=== PATIENT | male | born 1970 | race Caucasian/White ===

== ENCOUNTER 2025-01-05 09:42 | Outpatient (AMB) | payer BC, SELFPAY ==
--- OUTSIDE RECORDS SUMMARY | 2025-01-05 10:25 | XMS_ITS | Clinical Summary ---
Author Organization [facility] Address [address] [place] [address] Care Team Providers Care Tree Doctor Name Role Phone Unavailable Primary Care Provider Unavailabl e Immunizations Name Administration Dates Next Due Covid-19 (Moderna 12+) 100mcg/0.5mL dosage 06/29 Social History Tobacco Use Types Packs/Day Years Used Date Smoking Tobacco: Never Assessed Sex and Gender Information Value Date Recorded Sex Assigned at Male 05/04/2020 11:47 AM EST Gender Identity Not on file Sexual Orientation Not on file Plan of Treatment Health Maintenance Due Date Last Done Comments Hepatitis B Vaccines (1 of 3 - 3-dose series) 1969 Hepatitis C Screening 1969 Depression Screening 1981 Preventative Health Evaluation 1987 DTap / Tdap / Td (1 - Tdap) 1988 Colon Cancer Screening (Colonoscopy) 2014 Shingrix-Zoster Vaccine (1 of 2) 2019 COVID-19 Vaccine (2 - 2023-2 5 season) 2024 06/29/2020 Influenza Vaccine (#1) 2025 Pneumococcal Vaccine Aged Out No long er eligible based on patient's age to complete this topic RSV Ped < 20 months Aged Out No longe r eligible based on patient's age to complete this topic
--- OUTSIDE RECORDS SUMMARY | 2025-01-05 10:25 | XMS_ITS | Encounter Summary ---
Author Organization [facility] Address [address] [place] [address] Care Team Providers Care Carpenter Foreman Name Role Phone Adrianna Andrade MD Primary Care Provider Encounter Details Date Type Department Care Team (Late st Contact Info) Description 06/06/2022 Scanned Document [facility] [address] [phone] Warner Jeffries MD [address] [place] [address] Social History Tobacco Use Types Packs/Day Years Used Date Smoking Tobacco: Never Smokeless Tobacco: Never Sex and Gender Information Value Date Recorded Sex Assigned at Not on file Legal Sex Male 6:50 PM EDT Gender Identity Not on file Sexual Orientation Not on file COVID-19 Exposure Response Date Recorded In the last 10 days, have yo u been in contact with someone who was confirmed or suspected to have Coronavirus/COVID-19? No / Unsure 05/31/2022 11:26 AM EST documented as of this encounter Plan of Treatment Not on file documented as of this encounter Procedures Procedure Name Priority Date/Time Associated Diagnosis Comments PATHOLOGY REPORT 06/06/2022 4:12 PM EST documented in this encounter Results * PATHOLOGY REPORT (06/06/2022 4:12 PM EST) us Warner Jeffries MD PATHOLOGY/CYTOLOGY ORDERABLES Final Result documented in this encounter Visit Diagnoses Not on filedocumented in this encounter Care Teams Carpenter Foreman Relationship Specialty Start Date End Date Adrianna Andrade MD [address] [place] [address] [place] [address] PCP - General 12/17/18 documented as of this encounter
--- NOTE | 2025-01-05 10:32 | MHC.PC.OV ---
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 Intake Note: New patient scheduled to establish care with pcp Sweatband Shaper Required: No Allergies No Known Allergies Allergy (Verified 01/05/25 10:37) Medication List - Last Reconciled 01/05/25 by Dwayne Sunshine MD lisinopril 40 mg PO DAILY Tobacco use date assessed: 01/05/25 Dental Screening Dental Screen Date: 01/05/25 Did you have a dental visit in the last 12 months?: Yes Did you have a dental problem in the last 6 months where you did not have access to dental care?: No Was dental information given to patient?: Patient has dentist HPI ART GALLERY DIRECTOR-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 ?? Prior PCP:Noam Shi Last office visit/CPE:? 1 yr Acute issue(s):? HTN Cough Rt Knee Pain. Hx of injury & surgery ?? PMHx:? HTN, Colon Polyps GI is in [place]; But had complications after [place] so Now wants GI in [place]. SurgHx:? R Knee Reconstruction after injury. FHx:? Mom: HTN, Dementia. 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 Nonsmoker, EtOH Varies Some months None. Sometimes 3-4 in a night. 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 1. Little interest or pleasure in doing things: not at all 2. Feeling down, depressed, or hopeless: not at all 3. Trouble falling or staying asleep, or sleeping too much: not at all 4. Feeling tired or having little energy: not at all 5. Poor appetite or overeating: not at all 6. Feeling bad about yourself - or that you are a failure or have let yourself or your family down: not at all 7. Trouble concentrating on things, such as reading the newspaper or watching television: not at all 8. Moving or speaking so slowly that other people could have noticed. Or the opposite - being so fidgety or restless that you have been moving around a lot more than usual: not at all 9. Thoughts that you would be better off or of hurting yourself in some way: not at all Total score: 0 Depression Screening Interpretation: Negative Depression Screening Done: Yes 60411 - PHQ-9 Billing: Yes Source: Developed by Drs. Arun Mike, Cristal Young, Joshua Jett and colleagues, with an educational dong from [employer]. Thrive Questionnaire Date Thrive assessed: 01/05/25 I am a: Patient What is your living situation today?: I have a steady place to live Within the past 12 months, did the food you bought not last and you didn't have the money to get more?: Never true Within the past 12 months, did you worry whether your food would run out before you got money to buy more?: Never true Do you have trouble paying for medicines?: No Do you have trouble getting transportation to medical appointments?: No Do you have trouble paying your heating and electricity bill?: No Do you have trouble taking care of your child, family member or friend?: No Do you have trouble with day-to-day activities such as bathing, preparing meals, shopping, managing finances, etc.?: No Are you currently unemployed and looking for a job?: No Are you interested in more education?: No Please select the resources that you would like help with: None Currently or been in a relationship where the following occur: No concerns reported THRIVE Score: 0 AUDIT C Alcohol Use Questionnaire (AUDIT-C) 1. How often do you have a drink containing alcohol?: 2-4 times a month 2. How many drinks containing alcohol do you have on a typical day when you are drinking?: 1 or 2 3. How often do you have six or more drinks on one occasion?: Less than monthly Total Score: 3 Score Reviewed/Action Taken: Yes SKYLA-7 AMB Questionnaire SKYLA-7 Date SKYLA - 7 assessed: 01/05/25 Feeling nervous, anxious, or on edge: 0 = Not at all Not being able to stop or control worryin = Not at all Worrying too much about different things: 0 = Not at all Trouble relaxin = Not at all Being so restless that it is hard to sit still: 0 = Not at all Becoming easily annoyed or irritable: 1 = Several days Feeling afraid as if something awful might happen: 0 = Not at all Total SKYLA-7 score (0-4 normal; 5-9 mild; 10-14 moderate; 15-21 severe): 1 Source: Developed by Drs. Arun Mike, Cristal Young, Joshua Jett and colleagues, with an educational dong from [employer]. SKYLA-7 Assessment Billing SKYLA-7 Assessment Tool: SKYLA-7 Assessment 23852 Review of Systems Const Denies chills, Denies fatigue, Denies fever(s), Denies headache(s) and Denies weakness ENT Denies dizziness and Denies headache(s) Card Denies chest pain, Denies lightheadedness, Denies dyspnea and Denies other (Palpitations) Resp Denies cough, Denies dyspnea, Denies wheezing and Denies other ( shortness of breath) Musc Denies numbness and Denies tingling Neuro Denies dizziness, Denies headache(s), Denies numbness, Denies tingling, Denies paresthesias and Denies weakness Psych Denies anxiety and Denies depression Endo Denies fatigue Aller/Immun Denies wheezing Physical exam (Primary Care) Vital Signs: Last Vital Signs Temp 98.3 F 01/05/25 10:41 Pulse 65 01/05/25 10:41 Resp 16 01/05/25 10:41 BP 140/90 H 01/05/25 10:43 Pulse Ox 98 01/05/25 10:41 Oxygen Delivery Method Room Air 01/05/25 10:41 BMI result Body Mass Index 32.3 Tobacco/Smoking Status: Tobacco use Status Tobacco use date assessed 01/05/25 01/05/25 10:47 Patient Tobacco Use Status Never used Tobacco 01/05/25 10:47 e-Cigarette/Vaping Use Never Used 01/05/25 10:47 PHQ-9: PHQ-9 Score PHQ-9: Total score 0 01/05/25 10:50 Depression Screening Interpretation: Negative Thrive Assessment: Date of Thrive Assessment Date Thrive assessed 01/05/25 01/05/25 10:47 Currently or been in a relationship where the following occur: No concerns reported Const General: no acute distress and well developed Nutritional Appearance: well nourished Orientation/consciousness: patient oriented x3 HENMT Head: Yes normocephalic and Yes atraumatic Eyes General: appearance normal, both eyes and all related structures Pupils: Equal, round and reactive pupils present EOM: EOMs intact bilaterally Resp Effort & Inspection: normal respiratory effort Auscultation: clear to auscultation bilaterally Cardio Rate: regular rate Rhythm: regular rhythm Heart sounds: S1 normal heart sound present, S2 normal heart sound present, no gallops, no murmurs and no rubs Neuro General: patient oriented x3 and gait normal Cranial nerves: Yes Equal, round and reactive pupils present Psych Affect: normal affect Coding Level of Care Code New Pt Level 3 (37716) Diagnoses High blood pressure I10 Cough R05.9 History of colon polyps Z86.0100 Screening for colon cancer Z12.11 Knee pain M25.569 Laboratory exam ordered as part of routine general medical examination Z00.00 Additional Codes SKYLA-7 Assessment Billing - SKYLA-7 Assessment Tool: SKYLA-7 Assessment 58762 ([id number]) PHQ-9 - 47001 - PHQ-9 Billing: Yes ([id number]) Assessment & Plan Assessment & Plan (1) High blood pressure: Code(s): I10 - Essential (primary) hypertension Category: Medical Plan: Blood pressure is elevated and patient also notes a cough which has been persistent over the same timeframe that he has been lisinopril. Will switch to losartan He has a blood pressure monitor at home and will call me if he has any problems. 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 Strong family history of colon cancer-father (4) Screening for colon cancer: Code(s): Z12.11 - Encounter for screening for malignant neoplasm of colon Category: Medical Plan: As above (5) Knee pain: Code(s): M25.569 - Pain in unspecified knee Category: Medical Plan: Chronic right knee pain History of knee injury and reconstruction. Will check an x-ray He will let me know if he wants to pursue follow-up with ortho (6) Laboratory exam ordered as part of routine general medical examination: Code(s): Z00.00 - Encounter for general adult medical examination without abnormal findings Category: Medical Plan: Check labs Orders: Orders Complete Blood Count Auto Diff Today Z00.00 - Encounter for general adult medical examination without abnormal findings Prostate Specific Antigen Scr Today Z12.5 - Encounter for screening for malignant neoplasm of prostate Microalbumin, Random (w Creat) Today I10 - Essential (primary) hypertension Lipid Panel Today Z00.00 - Encounter for general adult medical examination without abnormal findings TSH reflex Free T4 Today Z00.00 - Encounter for general adult medical examination without abnormal findings XR chest 2V Today R05.9 - Cough, unspecified Comprehensive [place]. Panel Fast Today Z00.00 - Encounter for general adult medical examination without abnormal findings UA CC w/rflx Micro + Cult Today Z00.00 - Encounter for general adult medical examination without abnormal findings XR knee RT 3V Today M25.569 - Pain in unspecified knee Medications: New losartan-hydrochlorothiazide 100-12.5 mg 1 tab PO DAILY 90 tabs 3RF 90 days
[2025-01-05 10:41] VITALS: BP 150/98; PULSE 65; RESP 16; TEMP 36.8; O2SAT 98; BMI 32.3
[2025-01-05 10:43] VITALS: BP 140/90
== END 2025-01-05 11:14 | disposition home or self-care (01) ==
LOC: HO.HMCFM 09:43
PROVIDERS: PCP Family Medicine; Visit Provider Family Medicine
DX: I10 Essential (primary) hypertension (principal); R05.9 Cough, unspecified; Z86.0100 Personal history of colon polyps, unspecified; Z12.11 Encounter for screening for malignant neoplasm of colon; M25.569 Pain in unspecified knee; Z00.00 Encounter for general adult medical examination without abnormal findings

== ENCOUNTER → 2025-01-05 09:42 | Outpatient (BNVA) | payer BC, SELFPAY | PROVIDERS: PCP Family Medicine; Visit Provider Family Medicine | DX: Z00.00 Encounter for general adult medical examination without abnormal findings (principal); I10 Essential (primary) hypertension; R05.9 Cough, unspecified; M25.561 Pain in right knee; Z86.0100 Personal history of colon polyps, unspecified | CPT/HCPCS: 96127 ==

== ENCOUNTER 2025-01-05 11:30 | Outpatient (REF) | payer BC, SELFPAY ==
--- OUTSIDE RECORDS SUMMARY | 2025-01-05 12:53 | XMS_ITS | Clinical Summary ---
Author Organization [facility] Address [address] [place] [address] Care Team Providers Care Curtain Feller Blindstitch Name Role Phone Unavailable Primary Care Provider Unavailabl e Social History Tobacco Use Types Packs/Day Years Used Date Smoking Tobacco: Never Assessed Sex and Gender Information Value Date Recorded Sex Assigned at Not on file Legal Sex Male 4:48 AM EST Gender Identity Not on file Sexual Orientation Not on file Plan of Treatment Health Maintenance Due Date Last Done Comments DTaP,Tdap,and Td Vaccines (1 - Tdap) 1988 Hepatitis B Vaccines (1 of 3 - 19+ 3-dose series) 1988 Pneumococcal Vaccine: 50+ Ye ars (1 of 1 - PCV) 2019 Zoster Vaccines (1 of 2) 2019 COVID-19 Vaccine (2 - 2023-2 5 season) 2024 06/29/2020 Influenza Vaccine (#1) 2025 HIB Vaccines Aged Out No longer eligi ble based on patient's age to complete this topic HPV Vaccines Aged Out No longer eligi ble based on patient's age to complete this topic Hepatitis A Vaccines Aged Out No long er eligible based on patient's age to complete this topic IPV Vaccines Aged Out No longer eligi ble based on patient's age to complete this topic MMR Vaccines Aged Out No longer eligi ble based on patient's age to complete this topic Meningococcal ACWY Vaccine Aged Out N o longer eligible based on patient's age to complete this topic Meningococcal B Vaccine Aged Out No l onger eligible based on patient's age to complete this topic RSV Immunization Patients Un isiah 20 months Aged Out No longer eligible b ased on patient's age to complete this topic Varicella Vaccines Aged Out No longer eligible based on patient's age to complete this topic
--- OUTSIDE RECORDS SUMMARY | 2025-01-05 12:53 | XMS_ITS ---
Author Name [facility] Organization Unknown History of Medication Use Medication Directions Dispensed Refills Start Date End Date Stat No known medications No known medications active Encounters Encounter Type Encounter Reason Primary Diagnosis Location Date Ambulatory Family history o f malignant neoplasm of digestive organs Leap 05/31/2022 Care Team Organization Name Specialty Phone Email Start Date End Da te [facility] 05/31/2022 06/05/[address] Primary Care 05/31/2022 [facility] NO PCP Primary Care 03/07/2021 02/10/2024
[2025-01-05 14:42] LABS: Appearance Urine Clear; Glucose Urine UA Negative (Negative); PH 6.5 (5.0-9.0); Specific Gravity - Urine 1.020 (1.005-1.025)
[2025-01-05 14:43] LABS: MANUAL DIFF FLAG NO
[2025-01-05 14:52] LABS: Hematocrit 44.9 % (42.0-52.0); Hemoglobin 15.1 g/dl (14.0-18.0); Imm Gran Abs Auto 0.02 X10*3/uL (0.00-0.03); Imm Gran Pct Auto 0.3 % (0.0-0.4); Lymphocytes Absolute Auto 1.8 X10*3/uL (1.2-4.9); Mean Corpuscular HGB Conc 33.6 g/dl (31.0-36.0); Mean Corpuscular Hemoglobin 29.8 pg (27.0-33.0); Mean Corpuscular Volume 88.7 fL (80.0-98.0); NRBC Abs Auto 0.000 X10*3/uL (0.0-0.012); NRBC Pct Auto 0.0 /100WBC (0.0-0.2); Platelet Count 176 X10*3/uL (160-400); Red Blood Count 5.06 X10*6/uL (4.60-5.80); White Blood Count 5.9 X10*3/uL (4.8-10.8)
[2025-01-05 15:14] LABS: Microalbum/Creatinine Ratio Ur 4.9 ug/mg cr (<30)
[2025-01-05 15:15] LABS: Alanine Aminotransferase 57 U/L (0-40); Albumin Level 4.5 g/dL (3.5-5.0); Alkaline Phosphatase 52 U/L (39-117); Anion Gap 11 (12-20); Aspartate Amino Transferase 40 U/L (5-37); Blood Urea Nitrogen 16 mg/dL (9-16); Calcium 9.1 mg/dL (8.4-10.2); Carbon Dioxide 29 mmol/L (22-29); Chloride 106 mmol/L (96-108); Cholesterol 203 mg/dL (<200); Estimated Glomerular Filt Rate > 60; HDL Cholesterol 33 mg/dL (>40); Potassium 4.3 mmol/L (3.3-5.1); Sodium 142 mmol/L (135-145); Total Protein 6.6 g/dL (6.5-8.0); Triglycerides 262 mg/dL (<150)
== END 2025-01-05 11:31 | disposition home or self-care (01) ==
LOC: HO.WFDLDS 11:30
PROVIDERS: Visit Provider Family Medicine
DX: Z00.00 Encounter for general adult medical examination without abnormal findings (principal); Z12.5 Encounter for screening for malignant neoplasm of prostate; R05.9 Cough, unspecified; M25.569 Pain in unspecified knee; I10 Essential (primary) hypertension
CPT/HCPCS: 36415; 80053; 80061; 81003; 82043; 82570; 84153; 84443; 85025

== ENCOUNTER 2025-04-03 09:18 | Outpatient (REF) | payer BC, SELFPAY ==
--- NOTE | ~2025-04-03 | XR_ITS ---
EXAMINATION: XR CHEST 2 VIEWS HISTORY: R05.9 - Cough, unspecified COMPARISON: There are no prior studies available for comparison. FINDINGS: PA and lateral views of the chest are submitted. The lungs are expanded and clear. There is no pleural effusion, pneumothorax, or pulmonary vascular congestion. The heart is normal in size. There is mild degenerative disc disease of the spine. XR/XR chest 2V IMPRESSION: Clear lungs. Electronically signed by: Arun Lam MD 04/06/2025 08:06 AM EDT
--- NOTE | ~2025-04-03 | XR_ITS ---
EXAMINATION: XR KNEE 1-2 VIEWS RIGHT HISTORY: M25.569 - Pain in unspecified knee COMPARISON: There are no prior studies available for comparison. FINDINGS: AP and lateral views of the right knee are submitted. Osseous mineralization is normal. The patient is status post ACL repair with multiple screws noted in the distal femur and proximal tibia. There is no fracture or dislocation. There is severe tricompartmental osteoarthritis with joint space narrowing and osteophyte formation. Multiple calcified loose bodies are noted throughout the joint space. XR/XR knee RT 2V IMPRESSION: Severe tricompartmental osteoarthritis. Multiple calcified loose bodies. Electronically signed by: Arun Lam MD 04/06/2025 08:07 AM EDT
--- OUTSIDE RECORDS SUMMARY | 2025-04-03 09:24 | XMS_ITS | Encounter Summary ---
Author Organization [facility] Address [address] [place] [address] Care Team Providers Care Java Groovy Developer Name Role Phone Adrianna Andrade MD Primary Care Provider Encounter Details Date Type Department Care Team (Late st Contact Info) Description 06/06/2022 Scanned Document [facility] [address] [phone] Warner Jeffries MD [address] [place] [address] Social History Tobacco Use Types Packs/Day Years [...] on filedocumented in this encounter Care Teams Java Groovy Developer Relationship Specialty Start Date End Date Adrianna Adnrade MD [address] [place] [address] [place] [address] PCP - General 12/17/18 documented as of this encounter
--- OUTSIDE RECORDS SUMMARY | 2025-04-03 09:24 | XMS_ITS | Clinical Summary ---
Author Organization [facility] Address [address] [place] [address] Care Team Providers Care Formstone Fitter Name Role Phone Unavailable Primary Care Provider [...] 2019 Zoster Vaccines (1 of 2) 2019 Depression Screening 06/24/2024 COVID-19 Vaccine (2 - 2024-2 6 season) 2025 06/29/2020 Influenza Vaccine (#1) 2025 RSV Immunization Adult Patie nts (1 - 1-dose 75+ series) 2044 HIB Vaccines Aged Out No longer eligi [...]
--- OUTSIDE RECORDS SUMMARY | 2025-04-03 09:24 | XMS_ITS | Encounter Summary ---
Author Organization [facility] Address [address] [place] [address] Care Team Providers Care Public Relations Account Executive Name Role Phone Adrianna Andrade MD Primary Care Provider Encounter Details Date Type Department Care Team (Late st Contact Info) Description 12/18/2018 Scanned Document [id number] [id number] [address] [place] [address] Renaldo Kam MD Social History Tobacco Use Types Packs/Day Years Used Date Smoking Tobacco: Never Assessed Sex and Gender Information Value Date Recorded Sex Assigned at Not on file Legal Sex Male 6:50 PM EDT Gender Identity Not on file Sexual Orientation Not on file documented as of this encounter Plan of Treatment Not on file documented as of this encounter Visit Diagnoses Not on filedocumented in this encounter Care Teams Public Relations Account Executive Relationship Specialty Start Date End Date Adrianna Andrade MD [address] [place] [address] J[place]IKA Coleman [address] PCP - General 12/17/18 documented as of this encounter
--- OUTSIDE RECORDS SUMMARY | 2025-04-03 09:24 | XMS_ITS | Encounter Summary ---
Author Organization [facility] Address [address] [place] [address] Care Team Providers Care Director Employment Name Role Phone Adrianna Andrade MD Primary Care Provider Encounter Details Date Type Department Care Team (Late st Contact Info) Description 05/25/2022 Telephone [facility], [address] [place] [phone] Warner Jeffries MD [address] [place] [address] Social History Tobacco Use Types Packs/Day Years [...] was confirmed or suspected to have Coronavirus/COVID-19? Unable to assess 05/09/2022 6:42 PM EST documented as of this encounter Miscellaneous Notes * Telephone Encounter - Charline Friedman MA - 05/28/2022 1:17 PM EST [facility] his procedure, they do not have a record of a colonoscopy. I also reached out to his primary care and received the same information. * Telephone Encounter - Charline Friedman MA - 05/28/2022 9:42 AM EST Records requested * Telephone Encounter - Soledad Sherwin - 05/25/2022 2:31 PM EST Good afternoon, The patients authorization is currently pending with the insurance but they are requesting the patient past procedure and pathology report, is it possible to obtain the patients past report? Thank you so much! documented in this encounter Plan of Treatment Not on file documented as of this encounter Visit Diagnoses Not on filedocumented in this encounter Care Teams Director Employment Relationship Specialty Start Date End Date Adrianna Andrade MD [address] [place] [address] [place] Coleman [address] PCP - General 12/17/18 documented as of this encounter
--- OUTSIDE RECORDS SUMMARY | 2025-04-03 09:24 | XMS_ITS | Encounter Summary ---
Author Organization [facility] Address [address] [place] [address] Care Team Providers Care Pet Care Associate Name Role Phone Adrianna Andrade MD Primary Care Provider Encounter Details Date Type Department Care Team (Late st Contact Info) Description 06/13/2022 Scanned Document [facility] [address] [facility] [place] [address] [place] [address] Warner Jeffries MD [address] [place] [address] Social History Tobacco Use Types Packs/Day Years [...] on filedocumented in this encounter Care Teams Pet Care Associate Relationship Specialty Start Date End Date Adrianna Andrade MD [address] [place] [address] [place]A Coleman [id number] PCP - General 12/17/18 documented as of this encounter
--- OUTSIDE RECORDS SUMMARY | 2025-04-03 09:24 | XMS_ITS | Clinical Summary ---
Author Organization [facility] Address [address] [place] [address] Care Team Providers Care Machine I Engraver Name Role Phone Unavailable Primary Care Provider [...] of 2) 2019 COVID-19 Vaccine (2 - 2024-2 6 season) 2025 06/29/2020 Influenza Vaccine (#1) 2025 Pneumococcal Vaccine Aged Out No long er eligible based on patient's age to complete this topic RSV Ped < 20 months Aged Out No longe r eligible based on patient's age to complete this topic
--- OUTSIDE RECORDS SUMMARY | 2025-04-03 09:24 | XMS_ITS | Clinical Summary ---
Author Organization [facility] Address [address] [place] [address] Care Team Providers Care Superannuation Clerk Name Role Phone Adrianna Andrade MD Primary Care Provider Allergies No known active allergies Medications Sodium Sulfate-Mag Sulfate-KCl (SUTAB) 0525-848-653 MG TabIndications :Personal history of colonic polyps,Family history of colon cancer in father,Family history of colonic polyps Take as directed for Colonoscopy/GI Procedure. See administration instructions. 24 tablet 2 Active Active Problems No known active problems Family History Medical History Relation Name Comments Colon cancer Father Breast cancer Sister Relation Name Status Comments Father Sister Social History Tobacco Use Types Packs/Day Years Used Date Smoking Tobacco: Never Smokeless Tobacco: Never Tobacco Cessation:Counseling Given: Not Answered Sex and Gender Information Value Date Recorded Sex Assigned at Not on file Legal Sex Male 6:50 PM EDT Gender Identity Not on file Sexual Orientation Not on file Last Filed Vital Signs Vital Sign Reading Time Taken Comments Blood Pressure - - Pulse - - Temperature - - Respiratory Rate - - Oxygen Saturation - - Inhaled Oxygen Concentration - - Weight 99.8 kg (220 lb) 05/31/2022 11:27 AM EST Height 172.7 cm (5' 8 ) 05/31/2022 11:27 AM EST Body Mass Index 33.45 05/31/2022 11:27 AM EST Plan of Treatment Health Maintenance Due Date Last Done Comments Hepatitis C Virus Screening 1969 HIV Screening 1982 DTaP/Tdap/Td Vaccines (1 - Tdap) 1988 Hepatitis B Vaccines (1 of 3 - 19+ 3-dose series) 1988 Pneumococcal Vaccines 50+ (1 of 1 - PCV) 2019 Zoster (Shingles) Vaccine (1 of 2) 2019 Influenza Vaccine 01/22/2025 COVID-19 Vaccine (3 - 2024- season) 02/22/202508/2020, 06/29/2020 Colonoscopy 06/05/2025 06/05/2022 (Prev iously Completed) Insurance [facility] Care Teams Superannuation Clerk Relationship Specialty Start Date End Date Adrianna Andrade MD [address] [place] [address] [place] Coleman [id number] PCP - General 12/17/18
== END 2025-04-03 09:19 | disposition home or self-care (01) ==
LOC: HO.HMGCX 09:18
PROVIDERS: PCP Family Medicine; Visit Provider Family Medicine
DX: R05.9 Cough, unspecified (principal); M25.561 Pain in right knee
CPT/HCPCS: 71046; 73560

== ENCOUNTER → 2025-04-03 09:24 | Outpatient (BNV) | payer BC, SELFPAY | PROVIDERS: PCP Family Medicine; Visit Provider Radiology Diagnostic Radiology | DX: R05.9 Cough, unspecified (principal); M17.11 Unilateral primary osteoarthritis, right knee | CPT/HCPCS: 71046; 73560 ==

== ENCOUNTER 2025-04-06 11:48 | Outpatient (AMB) | payer BC, SELFPAY ==
--- NOTE | 2025-04-06 11:53 | MHC.PC.OV ---
Vital Signs 04/06/25 11:58 Height 5 ft 8 in Weight 212 lb 6 oz BMI 32.3 BP 128/82 Blood Pressure Location Rt brachial Position Sitting Respiration 16 Pulse 83 Pulse Source Pulse Oximeter Temp 98 F Temp Source Temporal Artery Scan Pulse Oximetry (%) 96 Oxygen Delivery Method Room Air Intake Visit Reasons: Physical Intake Note: Iggy presents in the office today for his annual physical. Allergies No Known Allergies Allergy (Verified 04/06/25 11:54) Medication List - Last Reconciled 04/06/25 by Dwayne Sunshine MD losartan-hydrochlorothiazide 100-12.5 mg 1 tab PO DAILY 90 days Tobacco use date assessed: 04/06/25 Dental Screening Dental Screen Date: 04/06/25 Did you have a dental visit in the last 12 months?: Yes Did you have a dental problem in the last 6 months where you did not have access to dental care?: No Was dental information given to patient?: Patient has dentist HPI Physical HPI Details 54 y/o male presents for a CPE with f/u labs and health maint. Labs drawn 01/05/25. Reviewed labs with pt. Elevated liver enzymes - AST 40, ALT 57. Triglycerides 262. TC 203. LDL 118. HDL low at 33. PSA 3.27. BP today 128/82, 83p. He is on losartan-HCTZ 100-12.5mg daily. Pt reports cough has improved. Recent chest x-ray was clear. Reports ongoing knee pain. Knee x-ray 04/03/25 showed severe tricompartmental osteoarthritis. Multiple calcified loose bodies. Reports some chest pain on exertion. [facility] Medical History (Updated 04/06/25 @ 12:48 by Dwayne Sunshine MD) Arthritis High blood pressure Right knee injury Family History (Updated 04/06/25 @ 11:55 by Margie Trejo CMA) Mother High blood pressure Father Diabetes Colon cancer Sister High blood pressure Breast cancer Social History (Updated 04/06/25 @ 11:55 by Margie Trejo CMA) Housing: House Alcohol intake: current Patient Tobacco Use Status: Never used Tobacco e-Cigarette/Vaping Use: Never Used Second Hand Smoke Exposure: No Use of substances other than those prescribed or required for medical reasons: No service: No Current occupational status: employed 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 1. Little interest or pleasure in doing things: not at all 2. Feeling down, depressed, or hopeless: not at all 3. Trouble falling or staying asleep, or sleeping too much: not at all 4. Feeling tired or having little energy: not at all 5. Poor appetite or overeating: not at all 6. Feeling bad about yourself - or that you are a failure or have let yourself or your family down: not at all 7. Trouble concentrating on things, such as reading the newspaper or watching television: not at all 8. Moving or speaking so slowly that other people could have noticed. Or the opposite - being so fidgety or restless that you have been moving around a lot more than usual: not at all 9. Thoughts that you would be better off or of hurting yourself in some way: not at all Total score: 0 Depression Screening Interpretation: Negative Depression Screening Done: Yes 38561 - PHQ-9 Billing: Yes Source: Developed by Drs. Arun Mike, Cristal Young, Joshua Jett and colleagues, with an educational dong from [employer]. Thrive Questionnaire Date Thrive assessed: 04/06/25 I am a: Patient What is your living situation today?: I have a steady place to live Within the past 12 months, did the food you bought not last and you didn't have the money to get more?: Never true Within the past 12 months, did you worry whether your food would run out before you got money to buy more?: Never true Do you have trouble paying for medicines?: No Do you have trouble getting transportation to medical appointments?: No Do you have trouble paying your heating and electricity bill?: No Do you have trouble taking care of your child, family member or friend?: No Do you have trouble with day-to-day activities such as bathing, preparing meals, shopping, managing finances, etc.?: No Are you currently unemployed and looking for a job?: No Are you interested in more education?: No Please select the resources that you would like help with: None Currently or been in a relationship where the following occur: No concerns reported THRIVE Score: 0 AUDIT C Alcohol Use Questionnaire (AUDIT-C) 1. How often do you have a drink containing alcohol?: 2-4 times a month 2. How many drinks containing alcohol do you have on a typical day when you are drinking?: 3 or 4 3. How often do you have six or more drinks on one occasion?: Never Total Score: 3 SKYLA-7 AMB Questionnaire SKYLA-7 Date SKYLA - 7 assessed: 04/06/25 Feeling nervous, anxious, or on edge: 0 = Not at all Not being able to stop or control worryin = Not at all Worrying too much about different things: 0 = Not at all Trouble relaxin = Not at all Being so restless that it is hard to sit still: 0 = Not at all Becoming easily annoyed or irritable: 0 = Not at all Feeling afraid as if something awful might happen: 0 = Not at all Total SKYLA-7 score (0-4 normal; 5-9 mild; 10-14 moderate; 15-21 severe): 0 Source: Developed by Drs. Arun Mike, Cristal Young, Joshua Jett and colleagues, with an educational dong from [employer]. SKYLA-7 Assessment Billing SKYLA-7 Assessment Tool: SKYLA-7 Assessment 12318 Review of Systems Const Denies chills, Denies fatigue, Denies fever(s), Denies headache(s) and Denies weakness Eyes Denies change in vision ENT Denies dizziness, Denies headache(s), Denies hearing loss, Denies nasal congestion, Denies sinus pain, Denies sinus pressure and Denies sore throat Card Denies chest pain, Denies lightheadedness, Denies dyspnea and Denies other (palpitations) Resp Denies cough, Denies dyspnea and Denies wheezing GI Denies abdominal pain, Denies melena, Denies hematochezia, Denies change in bowel habits, Denies dyspepsia and Denies nausea Denies hematuria and Denies dysuria Musc Denies abnormal gait, Denies myalgias, Denies arthralgias, Denies numbness and Denies tingling Skin/Breast Denies rash, Denies unusual bruising and Denies wounds Neuro Denies abnormal gait, Denies dizziness, Denies headache(s), Denies memory loss, Denies numbness, Denies Sensory deficit (Neuro), Denies tingling and Denies weakness Psych Denies anxiety, Denies depression and Denies memory loss Endo Denies cold intolerance, Denies fatigue, Denies heat intolerance, Denies polydipsia and Denies polyuria Aakash/Lymph Denies easy bleeding and Denies easy bruising Aller/Immun Denies wheezing Physical exam (Primary Care) Vital Signs: Last Vital Signs Temp 98 F 04/06/25 11:58 Pulse 83 04/06/25 11:58 Resp 16 04/06/25 11:58 BP 128/82 04/06/25 11:58 Pulse Ox 96 04/06/25 11:58 Oxygen Delivery Method Room Air 04/06/25 11:58 BMI result Body Mass Index 32.3 Tobacco/Smoking Status: Tobacco use Status Tobacco use date assessed 04/06/25 04/06/25 12:00 Patient Tobacco Use Status Never used Tobacco 04/06/25 12:00 e-Cigarette/Vaping Use Never Used 04/06/25 12:00 PHQ-9: PHQ-9 Score PHQ-9: Total score 0 04/06/25 12:18 Depression Screening Interpretation: Negative Thrive Assessment: Date of Thrive Assessment Date Thrive assessed 04/06/25 04/06/25 12:00 Currently or been in a relationship where the following occur: No concerns reported Const General: no acute distress, well developed, alert and awake Nutritional Appearance: well nourished Orientation/consciousness: patient oriented x3 HENMT Head: Yes normocephalic and Yes atraumatic Ears: hearing grossly normal bilaterally and TM's normal bilaterally General nose exam: Normal external nose present and Normal nares present Mouth: Normal oral and palatal mucosa present and moist mucous membranes Teeth and gingiva: dentition normal Throat: Yes posterior oropharynx normal Eyes General: appearance normal, both eyes and all related structures Pupils: Equal, round and reactive pupils present and Pupil accommodation reflex normal EOM: EOMs intact bilaterally Neck Neck: Yes normal visual inspection, Yes no lymphadenopathy and Yes trachea midline Thyroid: Thyroid normal Carotids: no bruits Lymphatic: no lymphadenopathy noted Chest Chest palpation & inspection: normal inspection of the chest Resp Effort & Inspection: normal respiratory effort Auscultation: clear to auscultation bilaterally Cardio Rate: regular rate Rhythm: regular rhythm Heart sounds: S1 normal heart sound present, S2 normal heart sound present, no gallops, no murmurs and no rubs Bruits: no abdominal aortic bruits and no carotid bruits GI Palpation (GI): No Abdominal aortic bruit present, Soft to palpation, nontender, No hepatosplenomegaly present and No Rebound tenderness present Auscultation: normal bowel sounds General: Yes no CVA tenderness Back/Spine/Pelvis Back: no CVA tenderness Cervical Spine: cervical ROM normal and No Cervical spine tenderness Thoracic/Lumbar Spine: thoraco-lumbar ROM normal, No pain with thoraco-lumbar ROM, No thoracic spinal tenderness and No lumbar spinal tenderness Skin Lesions: no lesions Rashes: no rashes Trauma: no lacerations or abrasions Wounds: no wounds Nails: normal Neuro General: patient oriented x3 Cranial nerves: Yes Equal, round and reactive pupils present Cognition (Neuro): normal cognition Gait exam (Neuro): Normal gait present Motor exam (neuro): 5/5 motor strength present throughout Sensory Exam: No Sensory deficit (Neuro) Deep tendon reflexes (DTR's): Right patellar reflex intensity grade: 2+ and Left patellar reflex intensity grade: 2+ Extrem General: Yes normal to inspection and No edema Psych Appearance: grossly normal Affect: normal affect Attitude: cooperative Thought process: Normal thought process present Coding Level of Care Code Est Pt Level 3 (20132) Est Pt Prev Care 40-64y(03756) Diagnoses Adult general medical exam Z00.00 Elevated liver enzymes R74.8 Knee pain M25.569 Cough R05.9 High blood pressure I10 Screening for colon cancer Z12.11 Screening for prostate cancer Z12.5 Chest pain R07.9 History of colon polyps Z86.0100 Hyperlipidemia E78.5 Tinnitus H93.19 Change in hearing H91.90 Additional Codes SKYLA-7 Assessment Billing - SKYLA-7 Assessment Tool: SKYLA-7 Assessment 17822 ([id number]) PHQ-9 - 24764 - PHQ-9 Billing: Yes ([id number]) Assessment & Plan Assessment & Plan (1) Adult general medical exam: Code(s): Z00.00 - Encounter for general adult medical examination without abnormal findings Category: Medical Plan: 54-year-old male presents for complete physical exam Exam within normal limits Encouraged healthy diet with active lifestyle and plenty of exercise (2) Elevated liver enzymes: Code(s): R74.8 - Abnormal levels of other serum enzymes Category: Medical Plan: Mildly elevated liver enzymes Patient does note that he sometimes drinks and also gets dehydrated Encouraged moderation in alcohol use and increased hydration. 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 Goal is less than 140/90 Continue current medication (6) Screening for colon cancer: Code(s): Z12.11 - Encounter for screening for malignant neoplasm of colon Category: Medical Plan: History of colon polyps and family history of colon cancer (father) Referred to Gastroenterology for follow-up (7) Screening for prostate cancer: Code(s): Z12.5 - Encounter for screening for malignant neoplasm of prostate Category: Medical Plan: PSA was within normal range Will continue annual screening (8) Chest pain: Code(s): R07.9 - Chest pain, unspecified Category: Medical Plan: Patient notes breech chest pain with exertion on occasion. Does not last long EKG: Normal sinus rhythm, normal axis, no hypertrophy, no ST-T-wave changes. Controlling his blood pressure Working on cholesterol Referring him for stress test and will follow-up on this (9) History of colon polyps: Code(s): Z86.0100 - Personal history of colon polyps, unspecified Category: Medical Plan: As above (10) Hyperlipidemia: Code(s): E78.5 - Hyperlipidemia, unspecified Category: Medical Plan: Encouraged lifestyle changes Will recheck lipids in 3 months We discussed that if lipids are still high we made each use a medication. (11) Tinnitus: Code(s): H93.19 - Tinnitus, unspecified ear Category: Medical Plan: Tinnitus and hearing changes/loss Will refer to audiology (12) Change in hearing: Code(s): H91.90 - Unspecified hearing loss, unspecified ear Category: Medical Plan: As above Orders: Orders CA stress test Today E78.5 - Hyperlipidemia, unspecified, I10 - Essential (primary) hypertension, R07.9 - Chest pain, unspecified AMB EKG-In Office Today R07.9 - Chest pain, unspecified Referrals Orthopedics Referral M25.569 - Pain in unspecified knee Gastroenterology Referral Z86.0100 - Personal history of colon polyps, unspecified Audiology Referral H91.90 - Unspecified hearing loss, unspecified ear
[2025-04-06 11:58] VITALS: BP 128/82; PULSE 83; RESP 16; TEMP 36.6; O2SAT 96; BMI 32.3
--- OUTSIDE RECORDS SUMMARY | 2025-04-06 14:30 | XMS_ITS | Clinical Summary ---
Author Organization [facility] Address [address] [place] [address] Care Team Providers Care Wildlife Science Professor Name Role Phone Adrianna Andrade MD Primary Care Provider Allergies No known active allergies Medications Sodium Sulfate-Mag Sulfate-KCl (SUTAB) 9465-110-596 MG TabIndications :Personal history of colonic polyps,Family [...] Colonoscopy 06/05/2025 06/05/2022 (Prev iously Completed) Insurance [facility] Care Teams Wildlife Science Professor Relationship Specialty Start Date End Date Adrianna Andrade MD [address] [place] [address] JESSIKA Coleman [id number] PCP - General 12/17/18
--- OUTSIDE RECORDS SUMMARY | 2025-04-06 14:30 | XMS_ITS | Encounter Summary ---
Author Organization [facility] Address [address] [place] [address] Care Team Providers Care Reel Assembler Name Role Phone Adrianna Andrade MD Primary Care Provider Encounter Details Date Type Department Care Team (Late st Contact Info) Description 05/25/2022 Telephone [facility], [address] [place] [phone] Warner Jeffries MD [address] [place] [address] Social History Tobacco Use Types Packs/Day Years [...] 1:17 PM EST Re[facility], where Iggy thought he had his procedure, [...] on filedocumented in this encounter Care Teams Reel Assembler Relationship Specialty Start Date End Date Adrianna Andrade MD [address] [place] [address] JESSIKA Coleman [id number] PCP - General 12/17/18 documented as of this encounter
--- OUTSIDE RECORDS SUMMARY | 2025-04-06 14:30 | XMS_ITS | Encounter Summary ---
Author Organization [facility] Address [address] [place] [address] Care Team Providers Care Distributor Cleaner Name Role Phone Adrianna Andrade MD Primary Care Provider Encounter Details Date Type Department Care Team (Late st Contact Info) Description 06/06/2022 Scanned Document [facility] [address] [place] [phone] Warner Jeffries MD [address] [place] [address] Social History Tobacco Use Types Packs/Day Years [...] on filedocumented in this encounter Care Teams Distributor Cleaner Relationship Specialty Start Date End Date Adrianna Andrade MD [address] [place] [address] [place] [address] PCP - General 12/17/18 documented as of this encounter
--- OUTSIDE RECORDS SUMMARY | 2025-04-06 14:31 | XMS_ITS | Clinical Summary ---
Author Organization [facility] Address [address] [place] [address] Care Team Providers Care Billing Department Supervisor Name Role Phone Unavailable Primary Care Provider [...]
--- OUTSIDE RECORDS SUMMARY | 2025-04-06 14:31 | XMS_ITS | Encounter Summary ---
Author Organization [facility] Address [address] [place] [address] Care Team Providers Care Drilling Machine Operator Name Role Phone Adrianna Andrade MD Primary Care Provider Encounter Details Date Type Department Care Team (Late st Contact Info) Description 06/13/2022 Scanned Document [facility] [address] [facility] [place] [address] Warner Jeffries MD [address] [place] [address] Social History Tobacco Use Types Packs/Day Years [...] on filedocumented in this encounter Care Teams Drilling Machine Operator Relationship Specialty Start Date End Date Adrianna Andrade MD [address] [place] [address] JESSIKA Coleman [id number] PCP - General 12/17/18 documented as of this encounter
--- OUTSIDE RECORDS SUMMARY | 2025-04-06 14:31 | XMS_ITS | Clinical Summary ---
Author Organization [facility] Address [address] [place] [address] Care Team Providers Care Blood Tester Fowl Name Role Phone Unavailable Primary Care Provider [...]
--- OUTSIDE RECORDS SUMMARY | 2025-04-06 14:31 | XMS_ITS | Encounter Summary ---
Author Organization [facility] Address [address] [place] [address] Care Team Providers Care Top Printing Press Operator Name Role Phone Adrianna Andrade MD Primary Care Provider Encounter Details Date Type Department Care Team (Late st Contact Info) Description 12/18/2018 Scanned Document [facility] [id number] [address] [place] [address] Renaldo Kam MD Social History [...] on filedocumented in this encounter Care Teams Top Printing Press Operator Relationship Specialty Start Date End Date Adrianna Andrade MD [address] [place] [address] JESSIKA Coleman [id number] PCP - General 12/17/18 documented as of this encounter
== END 2025-04-06 13:00 | disposition home or self-care (01) ==
LOC: HO.HMCFM 11:49
PROVIDERS: PCP Family Medicine; Visit Provider Family Medicine
DX: Z00.00 Encounter for general adult medical examination without abnormal findings (principal); R07.9 Chest pain, unspecified; R74.8 Abnormal levels of other serum enzymes; M25.561 Pain in right knee; R05.9 Cough, unspecified; I10 Essential (primary) hypertension; Z12.11 Encounter for screening for malignant neoplasm of colon; Z12.5 Encounter for screening for malignant neoplasm of prostate; Z86.0100 Personal history of colon polyps, unspecified; E78.5 Hyperlipidemia, unspecified; H93.19 Tinnitus, unspecified ear; H91.90 Unspecified hearing loss, unspecified ear

== ENCOUNTER → 2025-04-06 11:48 | Outpatient (BNVA) | payer BC, SELFPAY | PROVIDERS: PCP Family Medicine; Visit Provider Family Medicine | DX: Z00.00 Encounter for general adult medical examination without abnormal findings (principal); I10 Essential (primary) hypertension; R74.8 Abnormal levels of other serum enzymes; E78.5 Hyperlipidemia, unspecified; M25.569 Pain in unspecified knee; R05.9 Cough, unspecified; R07.9 Chest pain, unspecified; H93.19 Tinnitus, unspecified ear; H91.90 Unspecified hearing loss, unspecified ear; Z86.0100 Personal history of colon polyps, unspecified | CPT/HCPCS: 93005; 96127 ==

== ENCOUNTER → 2025-05-13 07:53 | Outpatient (REF) | payer BC, SELFPAY ==
--- NOTE | 2025-05-13 07:54 | CA_ITS ---
Acquisition Time: 2025-05-13 08:14:43 Total Exercise Time: 00:09:49 Test Indications: CP Medications: LOSARTAN/HCTZ Protocol: MONICA Max HR: 142 BPM 86% of Pred: 165 BPM Max BP: 194/90 mmHG Max Work Load: 11.4 METS Exercise stress test with exercise 9 mins 49 secs of Monica Protocol, achieving 86% MPHR, with reports of SOB, no chest pain, without any arrythmias, with normotensive response to exercise- baseline hypertensive. Without any EKG changes meeting criteria for ischemia. In recovery, breathing improved and pt feeling back to baseline. Test reviewed with Dr. Montez. Referred By: Dwyane Sunshine Electronically Signed By: Ozzy Quispe
--- OUTSIDE RECORDS SUMMARY | 2025-05-13 08:06 | XMS_ITS | Encounter Summary ---
Author Organization [facility] Address [address] [place] [address] Care Team Providers Care Business Liaison Officer Name Role Phone Adrianna Andrade MD Primary Care Provider Encounter Details Date Type Department Care Team (Late st Contact Info) Description 06/13/2022 Scanned Document [facility] [address] [facility] [place] [address] Warner Jeffries MD [address] [place] [address] Social History Tobacco Use Types Packs/Day Years [...] on filedocumented in this encounter Care Teams Business Liaison Officer Relationship Specialty Start Date End Date Adrianna Andrade MD [address] [place] [address] JESSIKA Coleman [phone] PCP - General 12/17/18 documented as of this encounter
--- OUTSIDE RECORDS SUMMARY | 2025-05-13 08:06 | XMS_ITS | Clinical Summary ---
Author Organization [facility] Address [address] [place] [address] Care Team Providers Care Luggage Repairer Name Role Phone Unavailable Primary Care Provider [...]
--- OUTSIDE RECORDS SUMMARY | 2025-05-13 08:06 | XMS_ITS | Encounter Summary ---
Author Organization [facility] Address [address] [place] [address] Care Team Providers Care Industrial Technology Education Teacher Name Role Phone Adrianna Andrade MD Primary Care Provider Encounter Details Date Type Department Care Team (Late st Contact Info) Description 12/18/2018 Scanned Document [id number] [id number] [address] [place] [address] Renaldo Kam MD Social History [...] on filedocumented in this encounter Care Teams Industrial Technology Education Teacher Relationship Specialty Start Date End Date Adrianna Andrade MD [address] [place] [address] JESSIKA Coleman [phone] PCP - General 12/17/18 documented as of this encounter
--- OUTSIDE RECORDS SUMMARY | 2025-05-13 08:06 | XMS_ITS | Encounter Summary ---
Author Organization [facility] Address [address] [place] [address] Care Team Providers Care Associate Professor Of Music Name Role Phone Adrianna Andrade MD Primary Care Provider Encounter Details Date Type Department Care Team (Late st Contact Info) Description 06/06/2022 Scanned Document [facility] [address] [phone] Warner Jeffries MD [address] [place] [address] Social History Tobacco Use Types Packs/Day Years [...] on filedocumented in this encounter Care Teams Associate Professor Of Music Relationship Specialty Start Date End Date Adrianna Andrade MD [address] [place] [address] [place] [address] PCP - General 12/17/18 documented as of this encounter
--- OUTSIDE RECORDS SUMMARY | 2025-05-13 08:06 | XMS_ITS | Clinical Summary ---
Author Organization [facility] Address [address] [place] [address] Care Team Providers Care Repairer Controller Tester Name Role Phone Adrianna Andrade MD Primary Care Provider Allergies No known active allergies Medications Sodium Sulfate-Mag Sulfate-KCl (SUTAB) [phone] MG TabIndications :Personal history of colonic polyps,Family [...] 06/29/2020 Colonoscopy 06/05/2025 06/05/2022 (Prev iously Completed) RSV Vaccine 50 years and old er and Patients (1 - 1-dose 75+ series) 2044 Insurance [facility] Care Teams Repairer Controller Tester Relationship Specialty Start Date End Date Adrianna Andrade MD [address] [place] [address] [place] [address] PCP - General 12/17/18
== END ==
LOC: HO.CARD 07:53
PROVIDERS: PCP Family Medicine; Visit Provider Family Medicine
DX: I10 Essential (primary) hypertension (principal); R07.9 Chest pain, unspecified; E78.5 Hyperlipidemia, unspecified
CPT/HCPCS: 93017

== ENCOUNTER → 2025-05-13 07:54 | Outpatient (BNV) | payer BC, SELFPAY | PROVIDERS: PCP Family Medicine | DX: R06.02 Shortness of breath (principal) | CPT/HCPCS: 93016; 93018 ==

== ENCOUNTER 2025-06-07 09:49 | Outpatient (REF) | payer BC, SELFPAY ==
[2025-06-07 12:00] LABS: Alanine Aminotransferase 37 U/L (0-40); Albumin Level 4.6 g/dL (3.5-5.0); Alkaline Phosphatase 57 U/L (39-117); Anion Gap 9 (12-20); Aspartate Amino Transferase 33 U/L (5-37); Blood Urea Nitrogen 21 mg/dL (9-16); Calcium 9.2 mg/dL (8.4-10.2); Carbon Dioxide 29 mmol/L (22-29); Chloride 110 mmol/L (96-108); Cholesterol 207 mg/dL (<200); Estimated Glomerular Filt Rate > 60; HDL Cholesterol 34 mg/dL (>40); Potassium 4.3 mmol/L (3.3-5.1); Sodium 144 mmol/L (135-145); Total Protein 6.8 g/dL (6.5-8.0); Triglycerides 151 mg/dL (<150)
== END 2025-06-07 09:50 | disposition home or self-care (01) ==
LOC: HO.WFDLDS 09:49
PROVIDERS: Visit Provider Family Medicine
DX: Z00.00 Encounter for general adult medical examination without abnormal findings (principal); E78.5 Hyperlipidemia, unspecified; R74.8 Abnormal levels of other serum enzymes
CPT/HCPCS: 36415; 80053; 80061

== ENCOUNTER 2025-06-08 08:46 | Outpatient (AMB) | payer BC, SELFPAY ==
--- NOTE | 2025-06-08 08:55 | MHC.OFFVIS ---
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 The patient has had cortisone injections in the past which gave him temporary relief. He is considering looking into stem cell injections by a provider in [place]. He wishes to hold off on total knee replacement surgery for as long as possible. Allergies No Known Allergies Allergy (Verified 04/06/25 11:54) Medication List - Last Reconciled 06/08/25 by Arpan Winchester MD losartan-hydrochlorothiazide 100-12.5 mg 1 tab PO DAILY 90 days [facility] Medical History (Updated 06/08/25 @ 09:27 by Arpan Winchester MD) Arthritis High blood pressure Right knee injury Family History (Updated 04/06/25 @ 11:55 by Margie Trejo [facility]) Mother High blood pressure Father Diabetes Colon cancer Sister High blood pressure Breast cancer Social History (Updated 06/08/25 @ 09:00 by Ewelina Gonsalez) Housing: House Alcohol intake: current Patient Tobacco Use Status: Never used Tobacco e-Cigarette/Vaping Use: Never Used Second Hand Smoke Exposure: No service: No Current occupational status: employed 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 Retired- [employer] Current occupational exposures/hazards: No Cognitive needs: No Hearing needs: No Vision needs: Yes Physical Exam Vital Signs: BMI result Body Mass Index 31.9 Extrem Other: Right knee examination shows a minimal effusion, palpable crepitus with range of motion, pain with range of motion, range of motion from -3 degrees to 95 degrees, no instability Results Reviewed Results Reviewed: X-rays of the patient's right knee show severe joint space narrowing, subchondral sclerosis, osteophyte formation, hardware within the distal femur and proximal tibia from previous anterior cruciate ligament surgery Assessment & Plan Assessment & Plan (1) Osteoarthritis of right knee: Code(s): M17.11 - Unilateral primary osteoarthritis, right knee Category: Medical Plan Mr. Vyas presents with right knee pain due to osteoarthritis. I had a lengthy discussion with the patient regarding the treatment options. He wishes to hold off on total knee replacement surgery for as long as possible. I agree with this plan. The patient will follow up with the provider in [place] to further discuss the risks and benefits of stem cell treatment. He will follow up with me on an as-needed basis. Feel free to call me at any time should questions regarding his orthopedic management arise. Thank you very much for asking me to see this very friendly gentleman. I spent 21 minutes in reviewing the patient's records and imaging studies, seeing the patient and documenting in the medical record. Coding Level of Care Code New Pt Level 3 (63480) Add On Problem Visit Only Diagnoses Osteoarthritis of right knee M17.11
[2025-06-08 09:00] VITALS: BMI 31.9
--- OUTSIDE RECORDS SUMMARY | 2025-06-08 09:28 | XMS_ITS | Clinical Summary ---
Author Organization [facility] ity Address [address] [place] [address] Care Team Providers Care Special Forces Weapons Sergeant Name Role Phone Unavailable Primary Care Provider [...]
--- OUTSIDE RECORDS SUMMARY | 2025-06-08 09:28 | XMS_ITS | Clinical Summary ---
Author Organization [facility] Prior to 11/21/[address] [place] [address] Care Team Providers Care Director Of Casino Name Role Phone Unavailable Primary Care Provider [...]
== END 2025-06-08 09:19 | disposition home or self-care (01) ==
LOC: HO.HOS 08:47
PROVIDERS: PCP Family Medicine; Visit Provider Orthopaedic Surgery
DX: M17.11 Unilateral primary osteoarthritis, right knee (principal)
CPT/HCPCS: 99203

== ENCOUNTER 2025-06-09 10:25 | Outpatient (AMB) | payer BC, SELFPAY ==
--- NOTE | 2025-06-09 10:28 | MHC.PC.OV ---
Vital Signs 06/09/25 10:32 Height 5 ft 8 in Weight 213 lb BMI 32.4 BP 141/81 H Blood Pressure Location Lt brachial Position Sitting Respiration 16 Pulse 61 Pulse Source Pulse Oximeter Temp 97.9 F Temp Source Oral Pulse Oximetry (%) 98 Oxygen Delivery Method Room Air Intake Visit Reasons: /u intermittent chest pain, lipids, liver enzymes, Intake Note: patient here for follow up on intermittent chest pain, lipids, liver enzymes Commissioned Sales Associate Required: No Allergies No Known Allergies Allergy (Verified 06/09/25 10:31) Medication List - Last Reconciled 06/09/25 by Dwayne Sunshine MD losartan-hydrochlorothiazide 100-12.5 mg 1 tab PO DAILY 90 days Tobacco use date assessed: 06/09/25 Dental Screening Dental Screen Date: 06/09/25 Did you have a dental visit in the last 12 months?: Yes Did you have a dental problem in the last 6 months where you did not have access to dental care?: No Was dental information given to patient?: Patient has dentist HPI /u intermittent chest pain, lipids, liver enzymes, HPI Details 54 y/o male presents to f/u intermittent chest pain, HTN, HLD, liver enzymes. Stress test 05/13/25 shows: Exercise stress test with exercise 9 mins 49 secs of Rahat Protocol, achieving 86% MPHR, with reports of SOB, no chest pain, without any arrythmias, with normotensive response to exercise- baseline hypertensive. Without any EKG changes meeting criteria for ischemia. In recovery, breathing improved and pt feeling back to baseline. Test reviewed with Dr. Montez. Blood pressure today 141/81, 61p. He is on losartan-HCTZ 100-12.5mg daily. Labs drawn 06/07/25. Reviewed labs with pt. Fasting glucose 106. Triglycerides 151. TC 207. LDL 143. HDL low at 34. Liver enzymes within normal range. HPI Comments History of Present Illness Details Documentation assistance for Dwayne Sunshine MD, was provided by Enzo Vo,? [employer] on 06/09/2025 at 10:42 AM EST. I, Dr. Sunshine, have read, observed, and verified documentation. ?? 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 Retired- [employer] Current occupational exposures/hazards: No Cognitive needs: No Hearing needs: No Vision needs: Yes Questionnaire Thrive Questionnaire Date Thrive assessed: 04/06/25 I am a: Patient What is your living situation today?: I have a steady place to live Within the past 12 months, did the food you bought not last and you didn't have the money to get more?: Never true Within the past 12 months, did you worry whether your food would run out before you got money to buy more?: Never true Do you have trouble paying for medicines?: No Do you have trouble getting transportation to medical appointments?: No Do you have trouble paying your heating and electricity bill?: No Do you have trouble taking care of your child, family member or friend?: No Do you have trouble with day-to-day activities such as bathing, preparing meals, shopping, managing finances, etc.?: No Are you currently unemployed and looking for a job?: No Are you interested in more education?: No Please select the resources that you would like help with: None Currently or been in a relationship where the following occur: No concerns reported THRIVE Score: 0 SKYLA-7 AMB Questionnaire SKYLA-7 Date SKYLA - 7 assessed: 04/06/25 Source: Developed by Drs. Arun Mike, Cristal Young, Joshua Jett and colleagues, with an educational dong from [employer]. Review of Systems Const Denies chills, Denies fatigue, Denies fever(s), Denies headache(s) and Denies weakness ENT Denies dizziness and Denies headache(s) Card Denies dyspnea Resp Denies cough, Denies dyspnea, Denies wheezing and Denies other (shortness of breath) Musc Denies numbness and Denies tingling Neuro Denies dizziness, Denies headache(s), Denies numbness, Denies tingling and Denies weakness Psych Denies anxiety and Denies depression Endo Denies fatigue Aller/Immun Denies wheezing Physical exam (Primary Care) Vital Signs: Last Vital Signs Temp 97.9 F 06/09/25 10:32 Pulse 61 06/09/25 10:32 Resp 16 06/09/25 10:32 BP 141/81 H 06/09/25 10:32 Pulse Ox 98 06/09/25 10:32 Oxygen Delivery Method Room Air 06/09/25 10:32 BMI result Body Mass Index 32.4 Tobacco/Smoking Status: Tobacco use Status Tobacco use date assessed 06/09/25 06/09/25 10:35 Patient Tobacco Use Status Never used Tobacco 06/09/25 10:31 e-Cigarette/Vaping Use Never Used 06/09/25 10:31 Thrive Assessment: Date of Thrive Assessment Date Thrive assessed 04/06/25 06/09/25 10:31 Currently or been in a relationship where the following occur: No concerns reported Const General: well developed; No acute distress Nutritional Appearance: well nourished Orientation/consciousness: patient oriented x3 [facility]: Yes normocephalic and Yes atraumatic Eyes General: appearance normal, both eyes and all related structures Pupils: Equal, round and reactive pupils present EOM: EOMs intact bilaterally Resp Effort & Inspection: normal respiratory effort Auscultation: clear to auscultation bilaterally Cardio Rate: regular rate Rhythm: regular rhythm Heart sounds: S1 normal heart sound present, S2 normal heart sound present, no gallops, no murmurs and no rubs Neuro General: patient oriented x3 and gait normal Cranial nerves: Yes Equal, round and reactive pupils present Psych Affect: normal affect Coding Level of Care Code Est Pt Level 4 (42646) Diagnoses High blood pressure I10 Hyperlipidemia E78.5 Chest pain R07.9 Elevated fasting glucose R73.01 Elevated liver enzymes R74.8 Assessment & Plan Assessment & Plan (1) High blood pressure: Code(s): I10 - Essential (primary) hypertension Category: Medical Plan: Blood pressure remains elevated. Goal is less than 140/90 Continue losartan-hydrochlorothiazide as prescribed At amlodipine 5 mg daily Will recheck at next visit (2) Hyperlipidemia: Code(s): E78.5 - Hyperlipidemia, unspecified Category: Medical Plan: LDL cholesterol remains too high HDL is low Start atorvastatin Will recheck lipids in 3 months (3) Chest pain: Code(s): R07.9 - Chest pain, unspecified Category: Medical Plan: Stress test negative for ischemia Reassured patient (4) Elevated fasting glucose: Code(s): R73.01 - Impaired fasting glucose Category: Medical Plan: Blood sugar mildly elevated. Patient is not competent that he had a good fast Will recheck with next blood draw and will also check an A1c (5) Elevated liver enzymes: Code(s): R74.8 - Abnormal levels of other serum enzymes Category: Medical Plan: Liver enzymes were elevated and patient modified his alcohol intake and increased hydration Liver enzymes now in normal range Continue lifestyle changes Orders: Orders Lipid Panel Today E78.5 - Hyperlipidemia, unspecified, Z00.00 - Encounter for general adult medical examination without abnormal findings Comprehensive [place]. Panel Fast Today E78.5 - Hyperlipidemia, unspecified, Z00.00 - Encounter for general adult medical examination without abnormal findings Hemoglobin A1c Today R73.01 - Impaired fasting glucose Medications: New atorvastatin (Lipitor) 20 mg PO BEDTIME 90 tabs 3RF 90 days amlodipine 5 mg PO DAILY 90 tabs 3RF 90 days Refilled losartan-hydrochlorothiazide 100-12.5 mg 1 tab PO DAILY 90 tabs 3RF 90 days
[2025-06-09 10:32] VITALS: BP 141/81; PULSE 61; RESP 16; TEMP 36.6; O2SAT 98; BMI 32.4
--- OUTSIDE RECORDS SUMMARY | 2025-06-09 12:56 | XMS_ITS | Clinical Summary ---
Author Organization [facility] Prior to 11/21/[address] [place] [address] Care Team Providers Care Cattle Sprayer Name Role Phone Unavailable Primary Care Provider [...]
--- OUTSIDE RECORDS SUMMARY | 2025-06-09 12:56 | XMS_ITS | Clinical Summary ---
Author Organization [facility] ity Address [address] [place] [address] Care Team Providers Care Bingo Caller Name Role Phone Unavailable Primary Care Provider [...]
--- OUTSIDE RECORDS SUMMARY | 2025-06-09 12:56 | XMS_ITS | Encounter Summary ---
Author Organization [facility] Address [address] [place] [address] Care Team Providers Care Bi Solutions Architect Name Role Phone Adrianna Andrade MD Primary Care Provider Encounter Details Date Type Department Care Team (Late st Contact Info) Description 06/06/2022 Scanned Document [facility] [address] [id number] Warner Jeffries MD [address] [place] [id number] Social History Tobacco Use Types Packs/Day Years [...] on filedocumented in this encounter Care Teams Bi Solutions Architect Relationship Specialty Start Date End Date Adrianna Andrade MD [address] [place] [address] [place] [address] PCP - General 12/17/18 documented as of this encounter
--- OUTSIDE RECORDS SUMMARY | 2025-06-09 12:56 | XMS_ITS | Clinical Summary ---
Author Organization [facility] Address [address] [place] [address] Care Team Providers Care Heavy Media Operator Name Role Phone Adrianna Andrade MD Primary Care Provider Allergies No known active allergies Medications Sodium Sulfate-Mag Sulfate-KCl (SUTAB) 6789-128-791 MG TabIndications :Personal history of colonic polyps,Family [...] (1 - 1-dose 75+ series) 2044 Insurance [facility] Care Teams Heavy Media Operator Relationship Specialty Start Date End Date Adrianna Andrade MD [address] [place] [address] [place] [address] PCP - General 12/17/18
--- OUTSIDE RECORDS SUMMARY | 2025-06-09 12:56 | XMS_ITS | Encounter Summary ---
Author Organization [facility] Address [address] [place] [address] Care Team Providers Care Teleradiologist Name Role Phone Adrianna Andrade MD Primary Care Provider Encounter Details Date Type Department Care Team (Late st Contact Info) Description 12/18/2018 Scanned Document [facility] [id number] [address] [place] [address] Reanldo Kam MD Social History Tobacco Use Types [...] on filedocumented in this encounter Care Teams Teleradiologist Relationship Specialty Start Date End Date Adrianna Andrade MD [address] [place] [address] JESSIKA Coleman [id number] PCP - General 12/17/18 documented as of this encounter
--- OUTSIDE RECORDS SUMMARY | 2025-06-09 12:56 | XMS_ITS | Encounter Summary ---
Author Organization [facility] Address [address] [place] [address] Care Team Providers Care Heating Systems Installer Name Role Phone Adrianna Andrade MD Primary Care Provider Encounter Details Date Type Department Care Team (Late st Contact Info) Description 06/13/2022 Scanned Document [facility] [address] [facility] [place] [address] [address] [place] [address] Warner Jeffries MD [address] [place] [address] Social History Tobacco Use Types Packs/Day Years [...] on filedocumented in this encounter Care Teams Heating Systems Installer Relationship Specialty Start Date End Date Adrianna Andrade MD [address] [place] [address] [place] Coleman [id number] PCP - General 12/17/18 documented as of this encounter
== END 2025-06-09 10:55 | disposition home or self-care (01) ==
LOC: HO.HMCFM 10:26
PROVIDERS: PCP Family Medicine; Visit Provider Family Medicine
DX: I10 Essential (primary) hypertension (principal); E78.5 Hyperlipidemia, unspecified; R07.9 Chest pain, unspecified; R73.01 Impaired fasting glucose; R74.8 Abnormal levels of other serum enzymes